=== PATIENT | male | born 1980 | race Caucasian/White ===

== ENCOUNTER 2020-03-07 07:16 | Emergency (ER) | payer OTHER ==
[~2020-03-07] VITALS: Ht 185.4 cm; Wt 134.7 kg
--- NOTE | 2020-03-07 07:53 | NUR ---
BLADDER SCAN 376CC. ERP AWARE.
[2020-03-07] MEDS ORDERED: LIDOCAINE 2%,20 ML JEL.PF.APP MM ONE ×2 (07:56→08:00)
[2020-03-07] MEDS ORDERED: SODIUM CHLORIDE FLUSH 10ML SYR IVF ONE (08:00)
[2020-03-07] MEDS ORDERED: SODIUM CHLORIDE 0.9% 1,000ML IVBOLUS ONE (08:00)
[2020-03-07 08:05] LABS: BASOPHILS # (AUTO) 0.05 x10^3/uL (0-0.1); BASOPHILS % (AUTO) 1 % (0-1); EOSINOPHILS # (AUTO) 0.14 x10^3/uL (0-0.4); EOSINOPHILS % (AUTO) 2 % (1-7); LYMPHOCYTES # (AUTO) 2.32 x10^3/uL (1-3.4); LYMPHOCYTES % (AUTO) 25 % (22-44); MD NO; MEAN CORPUSCULAR HEMOGLOBIN 27.5 pg (27.5-34.5); MEAN CORPUSCULAR HGB CONC 32.7 g/dL (33.2-36.2); MEAN PLATELET VOLUME 8.9 fL (7.4-10.4); MONOCYTES # (AUTO) 0.71 x10^3/uL (0.2-0.8); MONOCYTES % (AUTO) 8 % (2-9); NEUTROPHILS # (AUTO) 6.01 x10^3/uL (1.8-6.8); NEUTROPHILS % (AUTO) 65 % (42-75); PLATELET COUNT 200 x10^3/uL (130-400); RED BLOOD COUNT 5.67 x10^6/uL (4.38-5.82); RED CELL DISTRIBUTION WIDTH 13.5 % (9.4-14.8)
[2020-03-07 08:18] LABS: ALANINE AMINOTRANSFERASE 59 U/L (12-78); ALBUMIN 3.9 g/dL (3.4-5.0); ANION GAP 8 mmol/L (5-15); CALCIUM 8.8 mg/dL (8.5-10.1); CHLORIDE 108 mmol/L (98-107)
[2020-03-07 08:21] LABS: ALKALINE PHOSPHATASE 82 U/L (45-117); BILIRUBIN,TOTAL 0.5 mg/dL (0.2-1.0); CREATININE 0.99 mg/dL (0.7-1.3); TOTAL PROTEIN 7.2 g/dL (6.4-8.2)
--- NOTE | 2020-03-07 08:30 | NUR ---
IV STARTED, ORDERED FLUIDS INFUSING. PT STANDING UP NOW AT BEDSIDE ATTEMPTING TO VOID.
--- NOTE | 2020-03-07 08:44 | NUR ---
PT ABLE TO VOID OUT A URINE SAMPLE. PT VOIDED ABOUT 400CC. URINE WALKED TO LAB.
[2020-03-07 08:52] LABS: MICROSCOPIC AUTO
--- NOTE | 2020-03-07 09:04 | NUR ---
pt able to void on own. per erp, hold cath at this time. pt has urinal at bedside.
[2020-03-07] MEDS ORDERED: CEFTRIAXONE PMX 1GM/50ML 50 ML IV SCH (09:30)
[2020-03-07] MEDS ORDERED: TAMSULOSIN 0.4 MG CAP.ER.24H PO ONE (10:00)
[2020-03-07] MEDS ORDERED: CEFTRIAXONE PMX 1GM/50ML 50 ML ONE (10:26)
[2020-03-07] MEDS ORDERED: TAMSULOSIN 0.4 MG CAP.ER.24H ONE (10:26)
--- NOTE | 2020-03-07 10:33 | NUR ---
AWAITING BLOOD CULTURES TO BE DRAWN. CALLED LAB, STATED A TECH IS ON THE WAY AT THIS TIME TO DRAW PT.
--- NOTE | 2020-03-07 11:39 | NUR ---
PT CONTINUES TO BE ABLE TO VOID WITHOUT PROBLEMS. PT HAS VOIDED ABOUT 900CC TOTAL AT THIS TIME. ABS ALMOST DONE. BLOOD CULTURES DRAWN BEFORE ABX STARTED. WILL CONTINUE TO MONITOR.
[2020-03-07 11:50] VITALS: BP 149/81
== END 2020-03-07 12:02 | disposition home or self-care (01) ==
LOC: ED 07:47
DX: N39.0 Urinary tract infection, site not specified (principal); R73.9 Hyperglycemia, unspecified; N10 Acute pyelonephritis; R31.9 Hematuria, unspecified
CPT/HCPCS: 36415; 80053; 81001; 85025; 87040; 87086; 96361; 96365; 99285; J0696; J7030